=== PATIENT | male | born 1945 | race Hispanic/Latino ===

== ENCOUNTER 2020-05-20 12:55 | Emergency (ER) | payer OTHER ==
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
[2020-05-20 14:13] VITALS: BP 157/95; TEMP 97.2; O2SAT 99
== END 2020-05-20 14:05 | disposition home or self-care (01) ==
LOC: ER 12:55
DX: S06.0X0A Concussion without loss of consciousness, initial encounter (principal); W22.8XXA Striking against or struck by other objects, initial encounter; Y93.9 Activity, unspecified; Y92.89 Other specified places as the place of occurrence of the external cause
CPT/HCPCS: 70450; 72125; 99283

== ENCOUNTER 2024-01-15 12:08 | Emergency (ER) | payer OTHER ==
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
--- NOTE | 2024-01-15 12:41 | EDPHYS ---
Physician Documentation [facility] Name: Bonifacio Lee Age: 79 yrs Sex: Male : 1945 Arrival Date: 01/15/2024 Time: 12:08 Bed 14 Private MD: ED Physician Esther Eden HPI: 01/14 12:41 This 79 yrs old Male presents to ER via Ambulatory with complaints of boil sb4 under armpit. 12:41 The patient presents with an abscess of the right axilla. Description: The affected sb4 area is small, localized, well demarcated, swollen, tense, warm. Onset: The symptoms/episode began/occurred 3 month(s) ago. Possible cause(s): unknown. Associated signs and symptoms: The patient has no apparent associated signs or symptoms. The patient has not experienced similar symptoms in the past. The patient has not recently seen a physician. Historical: - Allergies: 12:28 No Known Allergies; ll1 - PMHx: 12:28 Diabetes - NIDDM; ll1 - Immunization history:: Adult Immunizations up to date. - Infectious Disease History:: Denies. - Social history:: Smoking status: Patient denies any tobacco usage or history of. ROS: 12:41 Constitutional: Negative for fever, chills, and weight loss, sb4 12:41 Skin: Positive for abscess, of the right axilla, 12:41 All other systems are negative, Exam: 12:41 Constitutional: This is a well developed, well nourished patient who is awake, alert, sb4 and in no acute distress. Head/Face: Normocephalic, atraumatic. Eyes: Extra-ocular motions intact. Periorbital areas with no swelling, redness, or edema. ENT: Mucous membranes moist. 12:41 Skin: abscess, that is small, of the right axilla, with fluctuance, that is moderate, Vital Signs: 12:26 BP 139 / 89; Pulse 73; Resp 15; Temp 96.9; Pulse Ox 99% on R/A; Weight 77.11 kg; Height ll1 5 ft. 11 in. ; Pain 5/10; 12:53 BP 135 / 84; Pulse 70; Resp 17; Pulse Ox 98% on R/A; rs5 12:26 Body Mass Index 23.71 (77.11 kg, 180.34 cm) ll1 12:26 Pain Scale: Adult ll1 Procedures: 12:41 I \T\ D: Incision and drainage was performed for an abscess of the right axilla. Prepped sb4 with Betadine, Anesthetized with nothing. Incised with 18 gauge needle. Drained moderate amount purulent fluid. Dressing: sterile 4x4 gauze, the patient tolerated the procedure well. MDM: 12:25 Patient medically screened. sb4 12:41 Data reviewed: vital signs, nurses notes, and as a result, I will discharge patient. sb4 Counseling: I had a detailed discussion with the patient and/or guardian regarding the historical points, exam findings, and any diagnostic results supporting the discharge/admit diagnosis, the need for outpatient follow up, for definitive care, to return to the emergency department if symptoms worsen or persist or if there are any questions or concerns that arise at home. Administered Medications: No medications were administered Disposition Summary: 01/15/24 12:41 Discharge Ordered Notes: Location: Home sb4 Problem: an ongoing problem sb4 Symptoms: have improved sb4 Condition: Stable sb4 Diagnosis - Cutaneous abscess of right axilla sb4 Followup: sb4 - With: Private Physician - When: 1 week - Reason: Recheck today's complaints, Re-evaluation by your physician Discharge Instructions: - Discharge Summary Sheet sb4 - Skin Abscess, [id number] sb4 - Incision and Drainage, Care After sb4 Forms: - Antibiotic Education sb4 - Patient Portal Instructions sb4 - Leadership Thank You Letter sb4 Prescriptions: - Bactrim DS 800-160 mg Oral Tablet - take 1 tablet ORAL route every 12 hours for 7 days; 14 tablet; Refills: 0, sb4 Product Selection Permitted Signatures: Fortino Christian RN RN ll1 Marychuy Fonseca PA-C PA-C sb4
[2024-01-15 12:58] VITALS: TEMP 96.9
[2024-01-15 12:59] VITALS: BP 135/84; O2SAT 98
== END 2024-01-15 12:54 | disposition home or self-care (01) ==
LOC: ER 12:08
PROC: 0H9BXZZ Drainage of Right Upper Arm Skin, External Approach (ICD-10-PCS; principal; 2024-01-15)
DX: L02.411 Cutaneous abscess of right axilla (principal)
CPT/HCPCS: 99284